=== PATIENT | female | born 1970 | race Caucasian/White ===

== ENCOUNTER → 2016-09-27 | Outpatient (CLI) | payer BC ==
[~2016-09-27] MED LIST: ACET-1256 PO; CITA20TA9 PO; IBUP-1450 PO; LORA-741 PO; MISCCAP80 PO; ONDA8TAB12 PO; PROC1TAB5 PO; ZOLP5TAB PO
[2016-09-27 17:17] LABS: URINE APPEARANCE CLEAR (CLEAR); URINE BILIRUBIN NEG (NEG); URINE COLOR YELLOW; URINE EPITHELIAL CELL AUTO 0-5 /lpf (0-5); URINE NITRITE NEG (NEG); URINE SPECIFIC GRAVITY 1.003 (1.000-1.030); UROBILINOGEN NEG (NEG); ZZUR CULT IF INDIC CLEAN CATCH NO
[2016-09-27 17:26] LABS: THYROID STIMULATING HORMONE 2.21 uIu/ml (0.300-4.500)
[2016-09-27 17:30] LABS: MANUAL MICROSCOPIC REQUIRED? NO; REVIEW REQ? NO
--- NOTE | 2016-10-03 09:46 | CODING QUERY MEDICAL NECESSITY ---
TREATMENT RENDERED WITHOUT A DIAGNOSIS To promote full compliance with coding requirements relating to patient care, physician participation is requested in all cases of geomorphology teacher uncertainty. Please assist us with providing a diagnosis/symptom for the test(s) below: A diagnosis/symptom was not documented on your Order. A valid diagnosis/symptom is required to bill all insurances. Please remember that we are unable to code a diagnosis of rule out, probable, possible, questionable, or suspected. Tests that require a diagnosis: * VITAMIN D 25 HYDROXY DIAGNOSIS: * VITAMIN B-12 LEVEL DIAGNOSIS: * DOS: 09/27/16 Provider Signature: Date: Thank you Tanisha Finch Health Information Management Once completed, please kindly fax back to [phone] For questions please call [phone]
== END | disposition home or self-care (01) ==
LOC: C.LABBFT 12:10
PROVIDERS: ATTEND Internal Medicine
DX: R10.13 Epigastric pain (principal); R53.83 Other fatigue; R23.2 Flushing

== ENCOUNTER 2016-11-15 14:19 | Emergency (ER) | payer BC ==
[~2016-11-15] VITALS: Ht 162.6 cm; Wt 48.0 kg
[~2016-11-15 14:19] MED LIST changes: -ACET-1256 PO; -CITA20TA9 PO; -IBUP-1450 PO; -ONDA8TAB12 PO; -PROC1TAB5 PO; -ZOLP5TAB PO
[2016-11-15 14:25] VITALS: TEMP 36.6; Ht 162.6 cm; Wt 48.0 kg
[2016-11-15] MEDS ORDERED: SODIUM CHLORIDE 0.9% 1000ML 1,000 ML IV STA (14:46)
[2016-11-15 14:55] LABS: BASO % 0.7 %; BASO ABS # 0.02 K/uL (0-0.2); COMPLETE YES; EOS % 0.7 %; HEMATOCRIT 35.1 % (37-47); LYMPH % 24.8 %; LYMPH ABS # 0.75 K/uL (1.2-3.4); MEAN CORPUSCULAR HEMOGLOBIN 28.4 pg (25-34); MEAN PLATELET VOLUME 9.3 fL (7.4-10.4); MONO % 15.8 %; PLATELET COUNT 103 K/uL (130-400); RED BLOOD COUNT 4.08 M/uL (4.2-5.4); WHITE BLOOD COUNT 3.03 K/uL (4.8-10.8)
[2016-11-15 15:02] LABS: CREATININE 0.77 mg/dl (0.60-1.20)
[2016-11-15 15:03] LABS: BUN/CREATININE RATIO 9.5 (10-20); CALCIUM 9.7 mg/dl (8.5-10.1); POTASSIUM 3.8 mmol/L (3.5-5.1)
[2016-11-15 15:04] LABS: PROTHROMBIN TIME (PATIENT) 10.7 SECONDS (9.0-12.0)
[2016-11-15 15:10] VITALS: O2SAT 99
[2016-11-15] MEDS ORDERED: ACET-1256 PO (15:18)
[2016-11-15] MEDS ORDERED: ONDA8TAB12 PO (15:18)
[2016-11-15] MEDS ORDERED: PROC1TAB5 PO (15:18)
[2016-11-15] MEDS ORDERED: IBUP-1450 PO (15:18)
[2016-11-15] MEDS ORDERED: CITA20TA9 PO (15:18)
[2016-11-15] MEDS ORDERED: ZOLP5TAB PO (15:18)
[2016-11-15 15:38] LABS: PREG INTERNAL NEGATIVE QC NEG CLEAR BACKGROUND; PREG INTERNAL POSITIVE QC POS CONTROL LINE
[2016-11-15 16:53] LABS: URINE APPEARANCE CLEAR (CLEAR); URINE BILIRUBIN NEG (NEG); URINE COLOR YELLOW; URINE NITRITE NEG (NEG); URINE SPECIFIC GRAVITY 1.014 (1.000-1.030); UROBILINOGEN NEG (NEG)
[2016-11-15 16:58] LABS: MANUAL MICROSCOPIC REQUIRED? NO; REVIEW REQ? NO
[2016-11-15] MEDS ORDERED: OPTIRAY 320 IV PRN (17:15)
--- NOTE | 2016-11-15 17:31 | DIAGNOSTIC IMAGING REPORT ---
ABDOMEN AND PELVIS CT WITH IV AND ORAL CONTRAST CT DOSE: 265.35 mGy.cm HISTORY: bloody stool per rectum. diverting ileostomy TECHNIQUE: Multiaxial CT images of the abdomen and pelvis were performed following the use of intravenous and oral contrast. COMPARISON STUDY: Abdomen and pelvis CT 04/11/2016. FINDINGS: There is periportal edema with heterogeneous enhancement of the liver. The main portal vein is patent. The hepatic veins are also patent. The gallbladder, pancreas, spleen, and adrenal glands are unremarkable. No hydronephrosis. There are few punctate left renal calculi. No retroperitoneal lymphadenopathy. The bladder is moderately thickened. Suture material at the rectum. Moderate perirectal edema/inflammatory change. There is 2.2 cm fibroid at the uterine fundus. No evidence for bowel obstruction. Normal appendix. No pelvic lymphadenopathy. Right lower quadrant ileostomy. IMPRESSION: 1. Interval rectal anastomosis with moderate perirectal edema/inflammatory change. These findings favor post radiation proctitis.. However, follow-up is recommended to ensure resolution. 2. Moderate thickening of the bladder wall which may represent a postradiation cystitis. Recommend correlation with urinalysis to exclude an infectious process. 3. Heterogeneous enhancement within the liver with mild periportal edema. The abnormal enhancement is likely due to the portal venous congestion. However, recommend correlation with LFTs to exclude an underlying hepatitis. Electronically signed by: Yoav Perez M.D. 11/15/2016 5:29 PM Dictated Date/Time: 11/15/2016 5:22 PM
[2016-11-15 21:33] VITALS: BP 118/70; PULSE 67; O2SAT 97
--- NOTE | 2016-11-15 23:43 | EMERGENCY ROOM VISIT NOTE ---
History Report prepared by Angie: Claudette Gale Under the Supervision of: Dr. Pedro Ko M.D. First contact with patient: 14:46 Chief Complaint: RECTAL BLEEDING Stated Complaint: RECTAL BLEEDING, LWR BACK/ABD PAIN, ILEOSTOMY Nursing Triage Summary: pt here dark stools that began this am, with clots. pt states some rectal pressure. pt has low back pain, hx of ileostomy. pt is currently undergoing chemo History of Present Illness The patient is a 46 year old female who presents to the Emergency Room with complaints of persistent rectal bleeding that occurred prior to arrival. She currently rates her discomfort as a 3/10 in severity. The patient notes that she has a history of colon cancer and had her last radiation treatment in June. She states that in July she had an ileostomy placed by a surgical oncologist team at [facility] in [place]. The patient states that today she developed lower abdominal pain describing it as a pressure. She states that the pressure radiates through her rectum. The patient describes it as a gas pressure. She reports output from her ileostomy today, but states that it has decreased. The patient states that one week ago she developed lower back pain. She states that the pain is similar to when she was initially diagnosed with the cancer. The patient notes hot flashes and diaphoresis. She states that she is currently undergoing chemotherapy treatment. Pt denies LOC, headache, fevers, chills, visual changes, neck pain, chest pain, breathing difficulties, nausea, vomiting, urinary symptoms, numbness, weakness, lymphadenopathy, rash, or other complaints. Source of History: patient Onset: prior to arrival Position: other (rectal) Symptom Intensity: 3/10 Quality: other (bleeding) Timing: other (persistent) Associated Symptoms: + abdominal pain, + back pain, + diaphoresis Review of Systems See HPI for pertinent positives and negatives. A total of ten systems were reviewed and were otherwise negative. Past Medical & Surgical Medical Problems: (1) Ileostomy in place (2) Rectal cancer Surgical Problems: (1) History of low anterior resection of rectum Family History Cancer Diabetes mellitus Heart disease Social History Smoking Status: Never Smoker Alcohol Use: none Marital Status: Housing Status: lives with significant other Occupation Status: employed Current/Historical Medications Scheduled Citalopram Hydrobromide (Celexa), 20 MG PO QAM Scheduled PRN Acetaminophen (Tylenol), 1,000 MG PO Q6 PRN for Pain Ibuprofen (Motrin), 600 MG PO Q4 PRN for Pain Ondansetron Hcl (Zofran), 8 MG PO Q8 PRN for Nausea or Vomiting Prochlorperazine Maleate (Compazine), 10 MG PO Q6H PRN for Nausea or Vomiting Zolpidem Tartrate (Ambien), 5 MG PO HS PRN for Sleep Allergies Coded Allergies: Clavulanic Acid (Verified Allergy, Unknown, 11/15/16) Replaces AUGMENTIN 250 Indomethacin (Verified Allergy, Unknown, Swelling, 11/15/16) Penicillins (Verified Allergy, Unknown, 11/15/16) Replaces AUGMENTIN 250 Physical Exam Vital Signs Date Time Temp Pulse Resp B/P Pulse Ox O2 Delivery O2 Flow Rate FiO2 11/15/16 21:33 67 20 118/70 97 11/15/16 20:45 68 16 123/75 98 Room Air 11/15/16 19:15 76 11/15/16 19:00 67 18 111/67 99 Room Air 11/15/16 18:06 61 16 106/73 100 Room Air 11/15/16 16:10 60 16 127/54 98 Room Air 11/15/16 15:10 99 Room Air 11/15/16 15:02 66 11/15/16 14:25 36.6 81 16 103/78 96 Room Air Physical Exam GENERAL: Awake, alert, well-appearing, in no distress HENT: Normocephalic, atraumatic. Oropharynx unremarkable. EYES: Normal conjunctiva. Sclera non-icteric. NECK: Supple. No nuchal rigidity. FROM. No JVD. RESPIRATORY: Clear to auscultation. CARDIAC: Regular rate, normal rhythm. Extremities warm and well perfused. Pulses equal. ABDOMEN: Ileostomy in right lower quadrant, mild lower tenderness bilaterally. Soft, non-distended. No rebound or guarding. No masses. Ileostomy in right lower quadrant, mild lower tenderness bilaterally. RECTAL: No masses, no gross blood, hemocolt positive. MUSCULOSKELETAL: Chest examination reveals no tenderness. The back is symmetrical on inspection without obvious abnormality. There is no CVA tenderness to palpation. No joint edema. LOWER EXTREMITIES: Calves are equal size bilaterally and non-tender. No edema. No discoloration. NEURO: Normal sensorium. No sensory or motor deficits noted. SKIN: No rash or jaundice noted. Medical Decision & Procedures ER Provider Diagnostic Interpretation: CT: Radiology results as stated below per my review and radiologist interpretation ABDOMEN AND PELVIS CT WITH IV AND ORAL CONTRAST CT DOSE: 265.35 mGy.cm HISTORY: bloody stool per rectum. diverting ileostomy TECHNIQUE: Multiaxial CT images of the abdomen and pelvis were performed following the use of intravenous and oral contrast. COMPARISON STUDY: Abdomen and pelvis CT 04/11/2016. FINDINGS: There is periportal edema with heterogeneous enhancement of the liver. The main portal vein is patent. The hepatic veins are also patent. The gallbladder, pancreas, spleen, and adrenal glands are unremarkable. No hydronephrosis. There are few punctate left renal calculi. No retroperitoneal lymphadenopathy. The bladder is moderately thickened. Suture material at the rectum. Moderate perirectal edema/inflammatory change. There is 2.2 cm fibroid at the uterine fundus. No evidence for bowel obstruction. Normal appendix. No pelvic lymphadenopathy. Right lower quadrant ileostomy. IMPRESSION: 1. Interval rectal anastomosis with moderate perirectal edema/inflammatory change. These findings favor post radiation proctitis.. However, follow-up is recommended to ensure resolution. 2. Moderate thickening of the bladder wall which may represent a postradiation cystitis. Recommend correlation with urinalysis to exclude an infectious process. 3. Heterogeneous enhancement within the liver with mild periportal edema. The abnormal enhancement is likely due to the portal venous congestion. However, recommend correlation with LFTs to exclude an underlying hepatitis. Electronically signed by: Yoav Perez M.D. 11/15/2016 5:29 PM Dictated Date/Time: 11/15/2016 5:22 PM Laboratory Results 11/15/16 14:40 Red Blood Count 4.08, Mean Corpuscular Volume 86.0, Mean Corpuscular Hemoglobin 28.4, Mean Corpuscular Hemoglobin Concent 33.0, Mean Platelet Volume 9.3, Neutrophils (%) (Auto) 58.0, Lymphocytes (%) (Auto) 24.8, Monocytes (%) (Auto) 15.8, Eosinophils (%) (Auto) 0.7, Basophils (%) (Auto) 0.7, Neutrophils # (Auto ) 1.76, Lymphocytes # (Auto) 0.75, Monocytes # (Auto) 0.48, Eosinophils # (Auto ) 0.02, Basophils # (Auto) 0.02 11/15/16 14:40 Test 11/15/16 14:40 11/15/16 16:23 White Blood Count 3.03 K/uL (4.8-10.8) Red Blood Count 4.08 M/uL (4.2-5.4) Hemoglobin 11.6 g/dL (12.0-16.0) Hematocrit 35.1 % (37-47) Mean Corpuscular Volume 86.0 fL (80-100) Mean Corpuscular Hemoglobin 28.4 pg (25-34) Mean Corpuscular Hemoglobin Concent 33.0 g/dl (32-36) Platelet Count 103 K/uL (130-400) Mean Platelet Volume 9.3 fL (7.4-10.4) Neutrophils (%) (Auto) 58.0 % Lymphocytes (%) (Auto) 24.8 % Monocytes (%) (Auto) 15.8 % Eosinophils (%) (Auto) 0.7 % Basophils (%) (Auto) 0.7 % Neutrophils # (Auto) 1.76 K/uL (1.4-6.5) Lymphocytes # (Auto) 0.75 K/uL (1.2-3.4) Monocytes # (Auto) 0.48 K/uL (0.11-0.59) Eosinophils # (Auto) 0.02 K/uL (0-0.5) Basophils # (Auto) 0.02 K/uL (0-0.2) RDW Standard Deviation 50.5 fL (36.4-46.3) RDW Coefficient of Variation 16.5 % (11.5-14.5) Immature Granulocyte % (Auto) 0.0 % Immature Granulocyte # (Auto) 0.00 K/uL (0.00-0.02) Prothrombin Time 10.7 SECONDS (9.0-12.0) Prothromb Time International Ratio 1.0 (0.9-1.1) Activated Partial Thromboplast Time 26.1 SECONDS (21.0-31.0) Partial Thromboplastin Ratio 1.0 Anion Gap 7.0 mmol/L (3-11) Est Creatinine Clear Calc Drug Dose 68.4 ml/min Estimated GFR () 106.6 Estimated GFR (Non- 91.9 BUN/Creatinine Ratio 9.5 (10-20) Calcium Level 9.7 mg/dl (8.5-10.1) Total Bilirubin 0.4 mg/dl (0.2-1) Direct Bilirubin 0.1 mg/dl (0-0.2) Aspartate Amino Transf (AST/SGOT) 104 U/L (15-37) Alanine Aminotransferase (ALT/SGPT) 126 U/L (12-78) Alkaline Phosphatase 73 U/L (45-117) Total Protein 7.2 gm/dl (6.4-8.2) Albumin 3.4 gm/dl (3.4-5.0) Lipase 181 U/L (73-393) Human Chorionic Gonadotropin, Qual NEG (NEG) Urine Color YELLOW Urine Appearance CLEAR (CLEAR) Urine pH 6.0 (4.5-7.5) Urine Specific [place] 1.014 (1.000-1.030) Urine Protein NEG (NEG) Urine Glucose (UA) NEG (NEG) Urine Ketones NEG (NEG) Urine Occult Blood NEG (NEG) Urine Nitrite NEG (NEG) Urine Bilirubin NEG (NEG) Urine Urobilinogen NEG (NEG) Urine Leukocyte Esterase NEG (NEG) Laboratory results reviewed by me Medications Administered Medications (Trade) Dose Ordered Sig/Radha Route Start Time Stop Time Status Last Admin Dose Admin Sodium Chloride (Nss 1000ml) 1,000 ml @ 999 mls/hr Q1H1M STAT IV 11/15/16 14:46 11/15/16 15:46 DC 11/15/16 14:46 999 MLS/HR ECG Indication: other (rectal bleeding) Rate (beats per minute): 66 Rhythm: normal sinus Findings: no acute ischemic change, no ectopy ED Course 1451: The patient was evaluated in room C6. A complete history and physical exam was performed. 1446: Ordered Sodium Chloride 1000 ml @ 999 mls/hr IV. 1455: I spoke to April reynoso PA-C from the surgical oncologist team from [facility]. She is going to speak to Dr. Banks and call back with what type of CT scan we should proceed with. 1525: I talked with KEREN Chen Surgical Oncology [facility], we are just awaiting a call back from surgeon who is currently in the OR. 1732: I reevaluated the patient and she is resting comfortably. 1750: I discussed the patient's case with Dr. Perez, Radiology. He states that there is no concern for an abscess. 1814: I reevaluated the patient and she is resting comfortably. I discussed the exam findings with her. 1913: I discussed the radiographic findings with the surgical team from [facility]. The PA-C is going to consult the surgeon to develop a plan. 1938: I updated the patient at this time. 2054: I discussed the patients case with Dr. Carr, Gastroenterology. He states that he will follow up with the patient as an outpatient. 2099: I reevaluated the patient and she is resting comfortably. I discussed the exam findings with her and I discussed the treatment plan. She verbalized complete understanding and agreement. She is ready to go home. Medical Decision Triage Nursing notes reviewed. The patient's presentation and history were concerning for rectal bleeding and abdominal pain with a history of LAR. Etiologies such as colitis, abscess, fistula, diverticulosis, AVM, coagulopathy ,inflammatory bowel disease, fissure, hemorrhoids, as well as others were entertained. The patient was evaluated. Hemodynamically she was stable. Ileostomy function was normal in appearance. She had mild lower abdominal discomfort but no rebound or guarding. Rectal examination did not reveal any gross blood or abnormalities however this was Hemoccult positive. The patient had CBC performed which revealed mild pancytopenia. The patient had an unremarkable chemistry panel. She had slight elevation of LFTs. Lipase was negative. test was negative. Urinalysis was negative. I was in consultation with her surgery team at [facility]. I discussed her issues several times with April her surgeon's PA. Her surgeon, Dr. Banks was operating. It was not immediately available. The patient underwent CT imaging with IV and oral contrast. This revealed proctitis and cystitis without evidence of abscess or perforation. Radiology was reluctant to do rectal contrast given the proctitis and increased risk of perforation. I did relay this to April. It was waiting for Dr. Banks to get back to us but unfortunately he did not. After 7 hours in the emergency department the patient had a consultation placed with gastroenterology. I discussed the case with Dr. carr. He will see the patient in the office. He did not recommend any additional treatment for this evening. The patient felt very comfortable with being discharged and following up tomorrow. If the patient worsens in any way she will come back to the emergency department she will also contact Dr. Banks tomorrow. By the evaluation outlined above other emergent etiologies such as those listed in the differential, as well as others, were deemed relatively unlikely. The patient and were informed about the findings as listed above. All questions were answered and they were pleased with the treatment. Return instructions were outlined and the patient was discharged in stable condition. The patient was referred to gastroenterology for follow-up for a recheck of the current condition. The chart was completed utilizing Twist Speech voice recognition software. Grammatical errors, random word insertions, pronoun errors, and incomplete sentences are an occasional consequence of this system due to software limitations, ambient noise, and hardware issues. Any formal questions or concerns about the content, text, or information contained within the body of this dictation should be directly addressed to the physician for clarification. Consults Time Called: 2048 Consulting Physician: Dr. Carr, Gastroenterology Returned Call: 2054 I discussed the patients case with Dr. Carr, Gastroenterology. He states that he will follow up with the patient as an outpatient. Impression Primary Impression: Proctitis Additional Impressions: Cystitis Lower GI bleed Scribe Attestation The scribe's documentation has been prepared under my direction and personally reviewed by me in its entirety. I confirm that the note above accurately reflects all work, treatment, procedures, and medical decision making performed by me. Departure Information Dispostion Home / Self-Care Referrals Lamin Arroyo M.D. (PCP) Saleem Carr MD Forms HOME CARE DOCUMENTATION FORM, IMPORTANT VISIT INFORMATION, WORK / SCHOOL INSTRUCTIONS Patient Instructions My [facility] Additional Instructions Continue current medications and care. Contact your surgeon's office tomorrow. The CT scan showed some mild proctitis and cystitis. This is inflammation of the rectum and bladder. There is no evidence of abscess or perforation. Consultation was made with Dr. carr for gastroenterology follow-up. Call the office tomorrow around 10 AM for an appointment time. Tell the clerk secretary that he is aware of your ED visit and will see you. Return to the ER for worsening abdominal pain, vomiting, fevers, bloody stools, severe rectal bleeding, passing out, lightheadedness, or as needed. Problem Qualifiers
== END 2016-11-15 21:34 | disposition home or self-care (01) ==
LOC: C.EDB 14:21 → C.EDC 21:34
DX: K62.89 Other specified diseases of anus and rectum (principal); N30.90 Cystitis, unspecified without hematuria; K92.2 Gastrointestinal hemorrhage, unspecified; Z93.2 Ileostomy status; C20 Malignant neoplasm of rectum; Z83.3 Family history of diabetes mellitus; Z82.49 Family history of ischemic heart disease and other diseases of the circulatory system

== ENCOUNTER → 2016-11-17 | Outpatient (CLI) | payer BC ==
[~2016-11-17] MED LIST changes: +ACET-1256 PO; +CITA20TA9 PO; +IBUP-1450 PO; -LORA-741 PO; -MISCCAP80 PO; +ONDA8TAB12 PO; +PROC1TAB5 PO; +ZOLP5TAB PO
--- NOTE | 2016-11-17 10:35 | DIAGNOSTIC IMAGING REPORT ---
GASTROGRAFIN ENEMA CLINICAL HISTORY: History of rectal carcinoma with low anterior resection. Diverting ileostomy. Rectal bleeding and gas. COMPARISON STUDY: CT scan dated 11/15/2016 FLUOROSCOPY TIME: 1.4 minutes. 12 fluoroscopic spot images were acquired.. FINDINGS: A red rubber catheter was placed into the rectum. Water-soluble contrast was administered under gravity drip. There is no evidence of an anastomotic stricture. There was no evidence of contrast extravasation. There is fecal material present within the colon. On the left colon was examined during fluoroscopy. On the post fluoroscopy films, the entire colon was opacified with reflux into terminal ileum. IMPRESSION: No evidence of anastomotic leak, stricture, or fistula. Electronically signed by: Carlos Michel M.D. 11/17/2016 10:34 AM Dictated Date/Time: 11/17/2016 10:31 AM
== END | disposition home or self-care (01) ==
LOC: C.RAD 09:17
PROVIDERS: ATTEND Internal Medicine
DX: Z85.048 Personal history of other malignant neoplasm of rectum, rectosigmoid junction, and anus (principal)

== ENCOUNTER → 2017-02-24 | Day surgery (SDC) | payer BC ==
[2017-02-24] VITALS (7 sets, daily range): BP systolic 82–133; BP diastolic 53–85; PULSE 56–68; TEMP 36.5; O2SAT 96–100; Ht 162.6 cm; Wt 52.0 kg
[~2017-02-24] VITALS: Ht 162.6 cm; Wt 52.0 kg
[~2017-02-24] MED LIST changes: +LIDOCAINE HCL 2% 2 ML VIAL (20MG/ML) ONE; +PROPOFOL IV EMULSION 10 MG/ML 20 ML VIAL IV ONE
--- NOTE | 2017-02-24 08:50 | Anesthesiology Progress Note ---
Anesthesia Post Op Note Date & Time Feb 24, 2017 at 08:50 Vital Signs Pain Intensity: 0 Vital Signs Past 12 Hours Date Time Temp Pulse Resp B/P (MAP) Pulse Ox O2 Delivery O2 Flow Rate FiO2 02/24/17 08:35 62 16 102/69 (80) 96 Room Air 02/24/17 08:30 63 16 107/69 (82) 96 Room Air 02/24/17 08:25 63 16 98/62 (74) 96 Room Air 02/24/17 08:20 65 16 97/66 (76) 96 Room Air 02/24/17 08:15 63 16 92/60 (71) 96 Room Air 02/24/17 08:10 68 16 98/64 100 Nasal Cannula 4 02/24/17 08:05 56 16 93/55 100 Nasal Cannula 4 02/24/17 08:00 61 16 86/54 100 Nasal Cannula 4 02/24/17 07:55 61 16 133/85 100 Nasal Cannula 4 02/24/17 07:50 63 16 82/53 100 Nasal Cannula 4 02/24/17 07:01 36.5 58 18 103/63 97 Room Air Notes Mental Status: alert / awake / arousable, participated in evaluation Pt Amnestic to Procedure: Yes Nausea / Vomiting: adequately controlled Pain: adequately controlled Airway Patency, RR, SpO2: stable & adequate BP & HR: stable & adequate Hydration State: stable & adequate Anesthetic Complications: no major complications apparent
--- NOTE | 2017-02-24 09:01 | TEE ---
*NOTICE TO RECEIVING LIBERTARIAN AGENCY This information is strictly Confidential and protected under [place] law. [place] law prohibits you from making any further disclosure of this information unless further disclosure is expressly permitted by the written consent of the person to whom it pertains or is authorized by law. A general authorization for the release of medical or other information is not sufficient for this purpose. Hospital accepts no responsibility if the information is made available to any other person, INCLUDING THE PATIENT. Interpretation Summary * Name: GLENN HERNDON Study Date: 02/24/2017 07:36 AM BP: 82/53 mmHg * Patient Location: [facility] HR: 63 * : 1970 (M/d/yyyy) Gender: Female Height: 64 in * Age: 47 yrs Ethnicity: CA Weight: 115 lb * Performed By: Claudette Carpenter RDCS * * Reason For Study: RULE OUT RIGHT ATRIAL THROMBUS * BSA: 1.5 m2 * -- Conclusions -- * Ejection Fraction = 60-65%. * Right atrial size is normal. * There is a catheter seen in the right atrium. * A prominent eustachian valve is noted. * Chiari network (normal variant) is noted. * There is trace tricuspid regurgitation. * There is trace mitral regurgitation. * Trivial loculated anterior pericardial effusion. * There are no echocardiographic indications of cardiac tamponade. Procedure Details * NANCY Probe #2 utilized for procedure. * The study was performed in Cardiac Catheterization Lab. * Time out was conducted by the physician, nurse, and sow farm technician with positive identification of patient and procedure. * Informed consent for Transesophageal Echocardiogram was obtained prior to the procedure. * An intravenous line was placed. A topical anesthetic agent was used for oropharangeal anesthesia. A bite block was inserted. * Sedation performed by the anesthesia department. * The patient's vital signs, including blood pressure, heart rate, pulse oximetry and cardiac rhythm were monitored throughout the procedure . * The posterior oropharynx was anesthetized using a topical anesthetic spray. A bite guard was inserted. * A multifrequency, multiplane transesopheageal echocardiographic endoscope was inserted and manipulated in the standard fashion to achieve multiplane views. * The transesophageal probe was passed without difficulty. * The usual views were obtained; basal, mid-esophageal, transgastric and aortic views. * The patient tolerated the procedure well without evidence of orophangeal or esophageal trauma. * Contrast injection with agitated saline was performed. * START TIME 7:51AM END TIME 8:07AM * A 2D transesophageal echocardiogram with Doppler and color flow Doppler was performed. Left Ventricle * The left ventricle is normal in size. * There is no thrombus. * There is normal left ventricular wall thickness. * Left ventricular systolic function is normal. * Ejection Fraction = 60-65%. * The left ventricular wall motion is normal. Right Ventricle * The right ventricle is normal in size and function. Atria * The left atrial size is normal. * No thrombus is detected in the left atrial appendage. * Right atrial size is normal. * Chiari network (normal variant) is noted. * A prominent eustachian valve is noted. * There is a catheter seen in the right atrium. * The interatrial septum is intact with no evidence for an atrial septal defect. Mitral Valve * The mitral valve anatomy is normal. * There is no evidence of mitral valve prolapse. * There is no mitral valve stenosis. * There is trace mitral regurgitation. Tricuspid Valve * The tricuspid valve is normal. * There is no tricuspid stenosis. * There is trace tricuspid regurgitation. Aortic Valve * The aortic valve is trileaflet. * No hemodynamically significant valvular aortic stenosis. * No aortic regurgitation is present. Pulmonic Valve * The pulmonic valve is not well seen, but is grossly normal. * There is no pulmonic valvular stenosis. * There is no pulmonic valvular regurgitation. Great Vessels * The aortic root is normal size. * Ascending aorta of normal dimension Pericardium * Trivial loculated anterior pericardial effusion. * There are no echocardiographic indications of cardiac tamponade.
--- NOTE | 2017-02-24 09:03 | Discharge Instructions ---
Discharge Instructions Procedure Procedure Date: Feb 24, 2017. Reason for Visit: Abnormal Ekg, *Dr Vences* *Anethesia Notified*. Discharge Discharge Date: Feb 24, 2017. Discharge Diagnosis: Status post NANCY. No evidence of right atrial mass. Last Recorded Wt (Kilograms): 52 Anesthesia Post Anesthesia Instructions: If you have had General Anesthesia or IV Sedation: * Do not drive today. * Resume driving when surgeon permits. * Do not make important decisions or sign legal documents today. * Call surgeon for: 1. Temperature elevations greater than 101 degrees F. 2. Uncontrollable pain. 3. Excessive bleeding. 4. Persistent nausea and vomiting. 5. Medication intolerance (nausea, vomiting or rash). * For nausea and vomiting use only clear liquids such as: tea, soda, bouillon until nausea subsides, then gradually increase diet as tolerated. * If you have any concerns or questions, call your surgeon's office. If physician is unavailable and it is an emergency, call 911 or go to the nearest emergency room. Instructions Activity Recommendations: limitations as noted below Return to School/Work: with the following limitations Recommended Home Diet: resume previous diet Allergies: Coded Allergies: Clavulanic Acid (Verified Allergy, Unknown, 11/15/16) Replaces AUGMENTIN 250 Indomethacin (Verified Allergy, Unknown, Swelling, 11/15/16) Penicillins (Verified Allergy, Unknown, 11/15/16) Replaces AUGMENTIN 250 Provider Instructions ACTIVITY RECOMMENDATIONS: Resume activities as tolerated with no limitations unless specified. _x_ No lifting over _10_ pounds for 24 hours. _x_ Do not engage in vigorous exercise, sexual activity, or sports for 24 hours. _x_ Do not drive or operate any motorized equipment for 24 hours. _x_ You may return to work/school tomorrow. _x_ Nothing to eat or drink until gag reflex returns. _x_ No HOT or WARM liquids for 12 hours. _x_ Avoid "scratchy" foods such as potato chips or pretzels for 24 hours following procedure. SPECIAL CARE: If you experience coughing up or vomiting of blood, contact Dr. Vences [phone] Follow Up Ac Ram Recommendations: Call your doctor if: * Temperature above 101 degrees * Pain not relieved by pain medicine ordered * There is increased drainage or redness from any incision * You have any unanswered questions or concerns. Your Doctors Instructions noted above were prepared by provider Caio Vences. Patient Signature Section: Patient Instructions Signature Page Iris Harris Patient (or Guardian) Signature/Date: I have read and understand the instructions given to me by my caregivers. Caregiver/RN/Doctor Signature/Date: The above-named patient and/or guardian has received patient instructions on this date. + Original Patient Signature Page (only) stays with chart. Please make copy for patient.
--- NOTE | 2017-02-24 11:48 | History & Physical Bridge Note ---
H&P Re-Evaluation Bridge Note: I have examined the patient, reviewed the History & Physical and in the interval since the performance of the History & Physical I have noted the following changes of clinical significance: No changes noted
== END | disposition home or self-care (01) ==
LOC: C.CATH 06:45
PROVIDERS: ATTEND Internal Medicine Cardiovascular Disease
DX: R93.1 Abnormal findings on diagnostic imaging of heart and coronary circulation (principal); I51.89 Other ill-defined heart diseases; I31.3 Pericardial effusion (noninflammatory); C20 Malignant neoplasm of rectum; Z82.49 Family history of ischemic heart disease and other diseases of the circulatory system

== ENCOUNTER → 2017-04-11 | Outpatient (CLI) | payer BC ==
[~2017-04-11] MED LIST changes: -ACET-1256 PO; -IBUP-1450 PO; -LIDOCAINE HCL 2% 2 ML VIAL (20MG/ML) ONE; -ONDA8TAB12 PO; -PROC1TAB5 PO; -PROPOFOL IV EMULSION 10 MG/ML 20 ML VIAL IV ONE
[2017-04-11 12:20] LABS: BASO % 0.2 %; BASO ABS # 0.01 K/uL (0-0.2); COMPLETE YES; EOS % 1.4 %; HEMATOCRIT 38.3 % (37-47); LYMPH % 34.3 %; LYMPH ABS # 1.48 K/uL (1.2-3.4); MEAN CELL VOLUME 90.5 fL (80-100); MEAN CORPUSCULAR HEMOGLOBIN 28.6 pg (25-34); MEAN CORPUSCULAR HGB CONC 31.6 g/dl (32-36); MEAN PLATELET VOLUME 9.1 fL (7.4-10.4); MONO % 8.1 %; PLATELET COUNT 239 K/uL (130-400); RED BLOOD COUNT 4.23 M/uL (4.2-5.4); WHITE BLOOD COUNT 4.31 K/uL (4.8-10.8)
[2017-04-11 12:22] LABS: URINE APPEARANCE CLEAR (CLEAR); URINE BILIRUBIN NEG (NEG); URINE COLOR YELLOW; URINE NITRITE NEG (NEG); URINE PH 5.5 (4.5-7.5); UROBILINOGEN NEG (NEG); ZZUR CULT IF INDIC CLEAN CATCH NO
[2017-04-11 12:27] LABS: MANUAL MICROSCOPIC REQUIRED? NO; REVIEW REQ? NO
[2017-04-11 12:31] LABS: ALT/SGPT 27 U/L (12-78); BLOOD UREA NITROGEN 11 mg/dl (7-18); BUN/CREATININE RATIO 14.9 (10-20); CALCIUM 9.2 mg/dl (8.5-10.1); CARBON DIOXIDE 30 mmol/L (21-32); CHLORIDE 106 mmol/L (98-107); CREATININE 0.71 mg/dl (0.60-1.20); GLUCOSE 80 mg/dl (70-99); SODIUM 140 mmol/L (136-145)
[2017-04-11 12:41] LABS: ALKALINE PHOSPHATASE 70 U/L (45-117); AST/SGOT 23 U/L (15-37); THYROID STIMULATING HORMONE 0.964 uIu/ml (0.300-4.500)
--- NOTE | 2017-04-17 08:48 | CODING QUERY MEDICAL NECESSITY ---
SUPPORTING DIAGNOSIS NEEDED Dr. Arroyo, A supporting diagnosis is required for the test/procedure performed on this patient in order for us to be reimbursed by the patient's insurance. Please provide a supporting diagnosis for the following test/procedure listed below next to the test name along with your signature. *If there is no additional diagnosis for this patient that would support the following test/procedure please document that below next to the test/procedure. Test(s)/Procedure(s) that require a supporting diagnosis: * ([id number]) VITAMIN D ASSAY DIAGNOSIS: * ([id number]) B12 VITAMIN LEVEL DIAGNOSIS: DATE OF SERVICE: 04/11/17 Provider Signature: Date: Thank you Tono Almonte [facility] Information Management Once completed, please kindly fax back to [phone] For questions please call [phone]
== END | disposition home or self-care (01) ==
LOC: C.LABBFT 10:17
PROVIDERS: ATTEND Internal Medicine
DX: G62.9 Polyneuropathy, unspecified (principal)

== ENCOUNTER → 2017-04-19 | Outpatient (CLI) | payer BC | END | disposition home or self-care (01) | LOC: C.PAPS 08:51 | PROVIDERS: ATTEND Obstetrics & Gynecology | DX: Z01.411 Encounter for gynecological examination (general) (routine) with abnormal findings (principal) ==

== ENCOUNTER → 2017-05-15 | Outpatient (CLI) | payer BC ==
[~2017-05-15] MED LIST changes: +GADAVIST IV PRN
--- NOTE | 2017-05-15 14:38 | DIAGNOSTIC IMAGING REPORT ---
BRAIN COMBO CLINICAL HISTORY: RECTAL CA, L SIDED NUMBNESS TINGLING mental status change COMPARISON STUDY: No previous studies for comparison. TECHNIQUE: Utilizing a 1.5 Sara magnet and dedicated coil, multiplanar, multiecho imaging of the brain was performed pre and postcontrast administration. IV administration of 5.2 mL of Gadavist contrast was uneventful. FINDINGS: Diffusion-weighted images are negative for an acute ischemic insult. Minimal chronic small vessel change of aging. Ventricular system is midline. No abnormal postcontrast enhancement. Internal artery canals are unremarkable. Sella and parasellar regions are unremarkable. IMPRESSION: Negative study The above report was generated using voice recognition software. It may contain grammatical, syntax or spelling errors. Electronically signed by: Dmitri Dasilva M.D. 05/15/2017 2:37 PM Dictated Date/Time: 05/15/2017 2:34 PM
--- NOTE | 2017-05-15 14:57 | DIAGNOSTIC IMAGING REPORT ---
MRI OF THE CERVICAL SPINE WITH AND WITHOUT CONTRAST CLINICAL HISTORY: Left upper and left lower extremity numbness and tingling. Paresthesias. History of colorectal cancer. COMPARISON: MRI of the cervical spine April 19, 2012. TECHNIQUE: Utilizing a 1.5 Sara magnet and dedicated coil, multiplanar, multiecho imaging of the cervical spine was performed before and after intravenous administration of 5.2 of Gadavist. FINDINGS: Alignment of the cervical spine is anatomic. Vertebral body heights are maintained. There is no suspicious marrow replacement. There is no intracanalicular mass or fluid collection. Cervical cord signal and caliber are normal. Paravertebral soft tissues are unremarkable. C2-C3: The central canal and neural foramen are patent. C3-C4: The central canal and neural foramen are patent. C4-C5: The central canal and neural foramen are patent. C5-C6: There is slight disc bulge. The central canal and neural foramen are patent. C6-C7: The central canal is patent. There is mild bilateral neural foraminal stenosis due to uncovertebral hypertrophy. C7-T1: Central canal and neural foramen are patent. IMPRESSION: 1. Minimal multilevel degenerative changes of the cervical spine. Patent central canal. Mild bilateral neural foraminal narrowing at C6-C7. No disc herniation. 2. No evidence of metastatic disease within the cervical spine. Electronically signed by: Etienne Stack M.D. 05/15/2017 2:56 PM Dictated Date/Time: 05/15/2017 2:48 PM
== END | disposition home or self-care (01) ==
LOC: C.MRI 12:49
PROVIDERS: ATTEND Internal Medicine Hematology & Oncology
DX: C20 Malignant neoplasm of rectum (principal); R20.2 Paresthesia of skin

== ENCOUNTER → 2017-05-17 | Outpatient (CLI) | payer BC ==
[~2017-05-17] MED LIST changes: -GADAVIST IV PRN
--- NOTE | 2017-05-17 15:18 | MAMMOGRAPHY REPORT ---
BILATERAL DIGITAL SCREENING MAMMOGRAM TOMOSYNTHESIS WITH CAD: 05/17/2017 CLINICAL HISTORY: Routine screening examination. TECHNIQUE: Breast tomosynthesis in addition to standard 2D mammography was performed. Current study was also evaluated with a Computer Aided Detection (CAD) system. COMPARISON: Comparison is made to exams dated: 09/18/2015 mammogram, 12/30/2013 mammogram, 12/27/2012 nara mogram, 12/22/2011 mammogram, and 12/01/2009 mammogram - [facility]. BREAST COMPOSITION: The tissue of both breasts is extremely dense, which lowers the sensitivity of m ammography. FINDINGS: There is a benign coarse calcification in the right breast. No new suspicious mass, prosper ectural distortion or cluster of microcalcifications is seen. IMPRESSION: ACR BI-RADS CATEGORY 1: NEGATIVE There is no mammographic evidence of malignancy. A 1 year screening mammogram is recommended. The pa tient will receive written notification of the results. Approximately 10% of breast cancers are not detected with mammography. A negative mammographic report should not delay biopsy if a clinically suggestive mass is present. Carol Lane M.D. ay/:05/17/2017 14:04:06 Applications Analyst: Shaunna SALGUERO(Sharona)(M), [facility] letter sent: Normal 1/2 BI-RADS Code: ACR BI-RADS Category 1: Negative
== END | disposition home or self-care (01) ==
LOC: C.MAMM 13:34
PROVIDERS: ATTEND Obstetrics & Gynecology
DX: Z12.31 Encounter for screening mammogram for malignant neoplasm of breast (principal)

== ENCOUNTER → 2017-06-02 | Outpatient (CLI) | payer BC ==
[2017-06-02 14:26] LABS: LYME DISEASE AB IGM NEG (NEG)
[2017-06-02 14:27] LABS: LYME DISEASE AB IGG NEG (NEG)
== END | disposition home or self-care (01) ==
LOC: C.LABBFT 10:16
PROVIDERS: ATTEND Physician Assistant
DX: M54.2 Cervicalgia (principal); M54.5 Low back pain; R53.83 Other fatigue; G62.9 Polyneuropathy, unspecified

== ENCOUNTER → 2017-10-23 | Outpatient (CLI) | payer BC ==
--- NOTE | 2017-10-23 08:59 | DIAGNOSTIC IMAGING REPORT ---
ABDOMEN FOR HERNIA CLINICAL HISTORY: 47 years-old Female presenting with K43.9 Ventral hernia, history of colorectal cancer and ostomy. TECHNIQUE: Real-time grayscale ultrasound imaging of the anterior abdominal wall was performed for a focused evaluation at the site of clinical concern. COMPARISON: CT from 11/15/2016. FINDINGS: At the site of clinical concern in the supraumbilical region to the left of midline, no sonographic evidence of a peritoneal defect or herniation of peritoneal contents. IMPRESSION: 1. No sonographic evidence of ventral hernia at the site of clinical concern. Electronically signed by: Gee Hernández M.D. 10/23/2017 8:58 AM Dictated Date/Time: 10/23/2017 8:56 AM
== END | disposition home or self-care (01) ==
LOC: C.ULTR 08:24
PROVIDERS: ATTEND Internal Medicine
DX: K43.9 Ventral hernia without obstruction or gangrene (principal)

== ENCOUNTER → 2017-11-03 | Outpatient (CLI) | payer BC ==
[~2017-11-03] MED LIST changes: +OPTIRAY 320 IV PRN
--- NOTE | 2017-11-03 13:05 | DIAGNOSTIC IMAGING REPORT ---
ABDOMEN AND PELVIS CT WITH IV AND ORAL CONTRAST CT DOSE: 335.42 mGycm HISTORY: Right upper quadrant abdominal pain. TECHNIQUE: Multiaxial CT images of the abdomen and pelvis were performed following the use of intravenous and oral contrast. A dose lowering technique was utilized adhering to the principles of ALARA. COMPARISON STUDY: Abdomen and pelvis CT 11/15/2016. FINDINGS: The lung bases are clear. No pneumoperitoneum. No pneumatosis. Patchy areas of the sclerosis within the bilateral sacral consistent with sacral insufficiency fractures. These are likely subacute to chronic. No suspicious lytic or blastic osseous lesions. The liver, gallbladder, pancreas, adrenal glands, and spleen are unremarkable. A 3 mm stone within the left kidney. No ureteral stones. No hydronephrosis. A few subcentimeter hypodense lesions within the bilateral kidneys. These are too small to characterize but statistically represent cysts. No retroperitoneal lymphadenopathy. The bladder is unremarkable. A 1.6 cm enhancing lesion within the uterine fundus. This likely represents a fibroid. Prior rectal anastomosis. Mild presacral/perirectal soft tissue thickening has improved. This likely represents resolving postoperative change. Moderate well-formed stool seen within the colon. No bowel wall thickening or obstruction. The visualized appendix is unremarkable. There is also anastomosis within the distal small bowel. IMPRESSION: 1. No bowel wall thickening or obstruction. 2. The visualized appendix is unremarkable. 3. Left-sided nephrolithiasis. No ureteral stones. No hydronephrosis. 4. Presacral/perirectal soft tissue thickening has improved. This likely represents resolving postoperative change. 5. Subacute to chronic nondisplaced bilateral sacral insufficiency fractures. Electronically signed by: Yoav Perez M.D. 11/03/2017 1:04 PM Dictated Date/Time: 11/03/2017 12:48 PM
== END | disposition home or self-care (01) ==
LOC: C.CTS 12:14
PROVIDERS: ATTEND Internal Medicine
DX: R10.11 Right upper quadrant pain (principal); N20.0 Calculus of kidney; S32.10XA Unspecified fracture of sacrum, initial encounter for closed fracture; X58.XXXA Exposure to other specified factors, initial encounter

== ENCOUNTER → 2017-12-05 | Outpatient (CLI) | payer BC ==
[~2017-12-05] MED LIST changes: -OPTIRAY 320 IV PRN
== END | disposition home or self-care (01) ==
LOC: C.MAMM 09:05
PROVIDERS: ATTEND Internal Medicine
DX: M85.88 Other specified disorders of bone density and structure, other site (principal); M85.851 Other specified disorders of bone density and structure, right thigh; M85.852 Other specified disorders of bone density and structure, left thigh; M84.48XA Pathological fracture, other site, initial encounter for fracture

== ENCOUNTER → 2017-12-25 | Outpatient (CLI) | payer BC ==
[2017-12-25 12:39] LABS: CREATININE 0.84 mg/dl (0.60-1.20)
== END | disposition home or self-care (01) ==
LOC: C.LABBFT 08:51
PROVIDERS: ATTEND Internal Medicine
DX: M85.80 Other specified disorders of bone density and structure, unspecified site (principal)

== ENCOUNTER → 2018-01-01 | Outpatient (CLI) | payer BC | END | disposition home or self-care (01) | LOC: C.LABSPEC 10:10 | PROVIDERS: ATTEND Internal Medicine Rheumatology | DX: N20.0 Calculus of kidney (principal); M84.48XA Pathological fracture, other site, initial encounter for fracture; M85.80 Other specified disorders of bone density and structure, unspecified site; E61.8 Deficiency of other specified nutrient elements ==